=== PATIENT | male | born 1995 | race African-American/Black ===

== ENCOUNTER 2023-06-14 09:53 | Inpatient (IN) | payer OTHER ==
[2023-06-14 10:38] VITALS: BMI 22.6
[2023-06-14] MEDS ORDERED: BENZOCAINE/MENTHOL (CHLORASEPTIC ) LOZENGE MM PRN (11:43)
[2023-06-14] MEDS ORDERED: guaiFENesin 600 MG TABLET.ER (FP) PO PRN (11:43)
[2023-06-14] MEDS ORDERED: POLYETHYLENE GLYCOL (HEALTHYLAX) 3350 17 GM PACKET PO PRN (11:43)
[2023-06-14] MEDS ORDERED: ACETAMINOPHEN 325 MG TABLET (FP) PO PRN (11:43)
[2023-06-14] MEDS ORDERED: NALOXONE HCL (KLOXXADO) 8 MG SPRAY NS PRN (11:43)
[2023-06-14] MEDS ORDERED: LOPERAMIDE HCL 2 MG CAPSULE PO PRN (11:43)
[2023-06-14] MEDS ORDERED: COLLOIDAL OATMEAL 1 BAR EACH TP PRN (11:43)
[2023-06-14] MEDS ORDERED: IBUPROFEN 400 MG TABLET (FP) PO PRN (11:43)
[2023-06-14] MEDS ORDERED: BENZONATATE 200 MG CAPSULE PO PRN (11:43)
[2023-06-14] MEDS ORDERED: NALOXONE HCL 0.4 MG/ML VIAL IM PRN (11:43)
[2023-06-14] MEDS ORDERED: MAGNESIUM HYDROX 2400MG/30ML ORAL SUSPENSION 30 ML CUP PO PRN (11:43)
[2023-06-14] MEDS ORDERED: IBUPROFEN 600 MG TABLET (FP) PO PRN (11:43)
[2023-06-14] MEDS: NICOTINE 14 MG/24 HOURS TOPICAL PATCH TD SCH (13:50)
[2023-06-14] MEDS: PRENATAL VITAMINS W/ FOLIC ACID TABLET (FP) PO SCH (13:50)
[2023-06-14] MEDS ORDERED: PRENATAL VITAMINS W/ FOLIC ACID TABLET (FP) PO ONE (14:19)
[2023-06-14] MEDS ORDERED: NICOTINE 14 MG/24 HOURS TOPICAL PATCH TD ONE (14:19)
[2023-06-14] MEDS ORDERED: TUBERCULIN PPD 5 TU/0.1ML SYRINGE (IN PATIENT USE ONLY) ID ONE (15:45)
[2023-06-14] MEDS: MELATONIN 5 MG TABLETS PO SCH (21:59)
[2023-06-14] MEDS: THIAMINE HCL 100 MG TABLET (FP) PO SCH (21:59)
[2023-06-15] MEDS: NICOTINE 14 MG/24 HOURS TOPICAL PATCH TD SCH (09:11)
[2023-06-15] MEDS: hydrOXYzine PAMOATE 25 MG CAPSULE (FP) PO PRN (09:12)
[2023-06-15] MEDS: PRENATAL VITAMINS W/ FOLIC ACID TABLET (FP) PO SCH (09:12)
[2023-06-15 11:09] LABS: HEMATOCRIT 42.2 % (35.4-49); MCH 31.3 pg (25.7-33.7); MCHC 33.2 g/dl (32.0-35.9); MEAN CELL VOLUME 94.3 fl (80-96); MEAN PLT VOLUME 9.1 fl (7.5-11.1); PLATELET COUNT 347 10^3/uL (134-434); RBC 4.47 M/mm3 (4.00-5.60); RDW 13.2 % (11.9-15.9); WHITE BLOOD COUNT 5.8 K/mm3 (4.0-10.0)
[2023-06-15 11:33] LABS: SYPHILIS W/ RPR CONF REACTIVE (NONREACTIVE)
[2023-06-15 12:19] LABS: POTASSIUM 3.9 mmol/L (3.5-5.1)
[2023-06-15 12:21] LABS: BLOOD UREA NITROGEN 13.6 mg/dL (7-18); CALCIUM 8.6 mg/dL (8.5-10.1)
[2023-06-15 12:22] LABS: ALBUMIN 3.6 g/dl (3.4-5.0)
[2023-06-15 12:25] LABS: CREATININE 1.1 mg/dL (0.55-1.3)
[2023-06-15 12:26] LABS: BILIRUBIN,TOTAL 0.3 mg/dL (0.2-1)
[2023-06-15 12:27] LABS: TOT PROT 6.5 g/dl (6.4-8.2)
[2023-06-15] MEDS: THIAMINE HCL 100 MG TABLET (FP) PO SCH (21:02)
[2023-06-15] MEDS: MELATONIN 5 MG TABLETS PO SCH (21:02)
[2023-06-15] MEDS: MAG HYDROX/AL HYDROX/SIMETH 30 ML UNIT-DOSE CUP PO PRN (23:18)
[2023-06-16] MEDS: PRENATAL VITAMINS W/ FOLIC ACID TABLET (FP) PO SCH (10:13)
[2023-06-16] MEDS: NICOTINE 14 MG/24 HOURS TOPICAL PATCH TD SCH (10:13)
[2023-06-16] MEDS: NALTREXONE HCL 50 MG TABLET PO SCH (14:00)
[2023-06-16 16:24] LABS: HIV INTERPRETATION NEGATIVE (NEGATIVE)
[2023-06-16] MEDS: hydrOXYzine PAMOATE 25 MG CAPSULE (FP) PO PRN (18:19)
[2023-06-16] MEDS: THIAMINE HCL 100 MG TABLET (FP) PO SCH (21:19)
[2023-06-16] MEDS: MELATONIN 5 MG TABLETS PO SCH (21:19)
[2023-06-17] MEDS: NICOTINE 14 MG/24 HOURS TOPICAL PATCH TD SCH (10:06)
[2023-06-17] MEDS: NALTREXONE HCL 50 MG TABLET PO SCH (10:06)
[2023-06-17] MEDS: PRENATAL VITAMINS W/ FOLIC ACID TABLET (FP) PO SCH (10:07)
[2023-06-17] MEDS: THIAMINE HCL 100 MG TABLET (FP) PO SCH (21:31)
[2023-06-17] MEDS: MELATONIN 5 MG TABLETS PO SCH (21:31)
[2023-06-17] MEDS: MAG HYDROX/AL HYDROX/SIMETH 30 ML UNIT-DOSE CUP PO PRN (23:34)
[2023-06-18] MEDS: NICOTINE 14 MG/24 HOURS TOPICAL PATCH TD SCH (10:00)
[2023-06-18] MEDS: PRENATAL VITAMINS W/ FOLIC ACID TABLET (FP) PO SCH (10:02)
[2023-06-18] MEDS: NALTREXONE HCL 50 MG TABLET PO SCH (10:02)
[2023-06-18] MEDS: MAG HYDROX/AL HYDROX/SIMETH 30 ML UNIT-DOSE CUP PO PRN (15:30)
[2023-06-18 16:29] LABS: PH,URINE 7.5 (5.0-8.0); URINE APPEARANCE CLEAR; URINE BILIRUBIN NEGATIVE (NEGATIVE); URINE COLOR YELLOW; URINE GLUCOSE (UA) NEGATIVE (NEGATIVE); URINE KETONE NEGATIVE (NEGATIVE); URINE LEUK ESTERASE NEGATIVE (NEGATIVE); URINE NITRITE NEGATIVE (NEGATIVE); URINE PROTEIN NEGATIVE (NEGATIVE); URINE UROBILINOGEN 0.2 mg/dL (0.2-1.0)
[2023-06-18] MEDS: THIAMINE HCL 100 MG TABLET (FP) PO SCH (21:29)
[2023-06-18] MEDS: MELATONIN 5 MG TABLETS PO SCH (21:29)
[2023-06-19] MEDS: NICOTINE 14 MG/24 HOURS TOPICAL PATCH TD SCH (10:09)
[2023-06-19] MEDS: PRENATAL VITAMINS W/ FOLIC ACID TABLET (FP) PO SCH (10:10)
[2023-06-19] MEDS: NALTREXONE HCL 50 MG TABLET PO SCH (10:10)
[2023-06-19] MEDS: hydrOXYzine PAMOATE 25 MG CAPSULE (FP) PO PRN (12:35)
[2023-06-19] MEDS: MELATONIN 5 MG TABLETS PO SCH (21:33)
[2023-06-19] MEDS: THIAMINE HCL 100 MG TABLET (FP) PO SCH (21:33)
[2023-06-20 06:49] VITALS: BP 131/70; PULSE 96; RESP 20; TEMP 97.3
[2023-06-20] MEDS: NICOTINE 14 MG/24 HOURS TOPICAL PATCH TD SCH (09:10)
[2023-06-20] MEDS: PRENATAL VITAMINS W/ FOLIC ACID TABLET (FP) PO SCH (09:10)
[2023-06-20] MEDS ORDERED: NALTREXONE MICROSPHERES (VIVITROL) 380 MG DISP.SYRIN IM ONE (10:00)
[2023-06-21] MEDS ORDERED: NALTREXONE MICROSPHERES (VIVITROL) 380 MG DISP.SYRIN IM ONE (10:00)
== END 2023-06-20 14:16 | disposition home or self-care (01) | DRG 772 ==
LOC: YASAS 09:53 → Y3E 13:25
PROVIDERS: ADMIT Allergy & Immunology; ATTEND Psychiatry & Neurology Pain Medicine
PROC: HZ42ZZZ Group Counseling for Substance Abuse Treatment, Cognitive-Behavioral (ICD-10-PCS; principal; 2023-06-14)
DX: F15.20 Other stimulant dependence, uncomplicated (principal); F12.20 Cannabis dependence, uncomplicated; F19.280 Other psychoactive substance dependence with psychoactive substance-induced anxiety disorder; F19.282 Other psychoactive substance dependence with psychoactive substance-induced sleep disorder; F41.9 Anxiety disorder, unspecified; F32.A Depression, unspecified; F39 Unspecified mood [affective] disorder; F90.9 Attention-deficit hyperactivity disorder, unspecified type; Z86.19 Personal history of other infectious and parasitic diseases; Z28.310 Unvaccinated for COVID-19; Z28.9 Immunization not carried out for unspecified reason
CPT/HCPCS: 36415; 80053; 80307; 81003; 85027; 86593; 86780; 86803; 87389; 87522; 87635; 87811; J2315

== ENCOUNTER 2023-11-28 20:26 | Inpatient (IN) | payer OTHER ==
[2023-11-28 21:42] VITALS: BMI 22.0
[2023-11-28] MEDS ORDERED: BENZONATATE 200 MG CAPSULE PO PRN (22:54)
[2023-11-28] MEDS ORDERED: MAG HYDROX/AL HYDROX/SIMETH 30 ML UNIT-DOSE CUP PO PRN (22:54)
[2023-11-28] MEDS ORDERED: MAGNESIUM HYDROX 2400MG/30ML ORAL SUSPENSION 30 ML CUP PO PRN (22:54)
[2023-11-28] MEDS ORDERED: POLYETHYLENE GLYCOL (HEALTHYLAX) 3350 17 GM PACKET PO PRN (22:54)
[2023-11-28] MEDS ORDERED: IBUPROFEN 600 MG TABLET (FP) PO PRN (22:54)
[2023-11-28] MEDS ORDERED: guaiFENesin 600 MG TABLET.ER (FP) PO PRN (22:54)
[2023-11-28] MEDS ORDERED: P-EPHED 60MG/TRIPROLIDI 2.5MG TABLET PO PRN (22:54)
[2023-11-28] MEDS ORDERED: BENZOCAINE/MENTHOL (CHLORASEPTIC ) LOZENGE MM PRN (22:54)
[2023-11-28] MEDS ORDERED: NALOXONE HCL (KLOXXADO) 8 MG SPRAY NS PRN (22:54)
[2023-11-28] MEDS ORDERED: NALOXONE HCL 0.4 MG/ML VIAL IM PRN (22:54)
[2023-11-28] MEDS ORDERED: IBUPROFEN 400 MG TABLET (FP) PO PRN (22:54)
[2023-11-28] MEDS ORDERED: LOPERAMIDE HCL 2 MG CAPSULE PO PRN (22:54)
[2023-11-28] MEDS ORDERED: METHOCARBAMOL 750 MG TABLET PO PRN (22:56)
[2023-11-29] MEDS: MELATONIN 5 MG TABLETS PO SCH (00:21)
[2023-11-29] MEDS: PRENATAL VITAMINS W/ FOLIC ACID TABLET (FP) PO SCH (10:35)
[2023-11-29] MEDS: ASPIRIN COATED 81 MG TABLET.EC PO SCH (10:35)
[2023-11-29 12:26] LABS: POTASSIUM 4.9 mmol/L (3.5-5.1)
[2023-11-29 12:52] LABS: ALBUMIN 3.6 g/dl (3.4-5.0); BLOOD UREA NITROGEN 12.5 mg/dL (7-18)
[2023-11-29 12:53] LABS: CALCIUM 8.8 mg/dL (8.5-10.1)
[2023-11-29 12:55] LABS: CREATININE 1.2 mg/dL (0.55-1.3)
[2023-11-29 12:57] LABS: BILIRUBIN,TOTAL 0.6 mg/dL (0.2-1); TOT PROT 7.1 g/dl (6.4-8.2)
[2023-11-29] MEDS ORDERED: DICYCLOMINE HCL 10 MG CAPSULE PO PRN (14:36)
[2023-11-29] MEDS ORDERED: ONDANSETRON *ODT* 4 MG TABLET SL PRN (14:36)
[2023-11-29] MEDS ORDERED: BISMUTH SUBSALICYLATE 262 MG/15 ML BTL PO PRN (14:36)
[2023-11-29] MEDS: THIAMINE 100 MG TABLET PO SCH (21:20)
[2023-11-30] MEDS ORDERED: BUPRENORPHINE HCL 150 MCG, BUPRENORPHINE HCL 75 MCG BC PRN (08:46)
[2023-11-30] MEDS: BUPRENORPHINE HCL 150 MCG, BUPRENORPHINE HCL 75 MCG BC ONE (09:46)
[2023-11-30] MEDS: diazePAM 5 MG TABLET PO PRN (09:46)
[2023-11-30] MEDS: cloNIDine HCL 0.1 MG TABLET PO ONE (09:47)
[2023-11-30 11:25] LABS: URINE APPEARANCE CLEAR; URINE BILIRUBIN NEGATIVE (NEGATIVE); URINE COLOR YELLOW; URINE GLUCOSE (UA) NEGATIVE (NEGATIVE); URINE KETONE NEGATIVE (NEGATIVE); URINE LEUK ESTERASE NEGATIVE (NEGATIVE); URINE NITRITE NEGATIVE (NEGATIVE); URINE PROTEIN NEGATIVE (NEGATIVE); URINE UROBILINOGEN 0.2 mg/dL (0.2-1.0)
[2023-11-30] MEDS ORDERED: cloNIDine HCL 0.1 MG TABLET PO PRN (12:46)
[2023-11-30] MEDS: METHOCARBAMOL 500 MG TABLET PO PRN (21:22)
[2023-12-01] MEDS ORDERED: BUPRENORPHINE HCL 150 MCG, BUPRENORPHINE HCL 75 MCG BC PRN
[2023-12-01] MEDS: hydrOXYzine PAMOATE 25 MG CAPSULE (FP) PO PRN (01:09)
[2023-12-01] MEDS: BUPRENORPHINE HCL 150 MCG, BUPRENORPHINE HCL 75 MCG BC SCH (07:00)
[2023-12-01 17:57] VITALS: RESP 18
[2023-12-02] MEDS: BUPRENORPHINE HCL 450 MCG FILM BC SCH (06:50)
[2023-12-02] MEDS: QUEtiapine FUMARATE 50 MG TABLET PO SCH (21:44)
[2023-12-03 07:18] VITALS: TEMP 97.5
[2023-12-03] MEDS: ACETAMINOPHEN 325 MG TABLET (FP) PO PRN (09:36)
[2023-12-04 07:22] VITALS: BP 129/81; PULSE 64
== END 2023-12-04 14:00 | disposition home or self-care (01) | DRG 772 ==
LOC: YASAS 20:26 → Y3E 23:20
PROVIDERS: ADMIT Allergy & Immunology; ATTEND Psychiatry & Neurology Pain Medicine
PROC: HZ42ZZZ Group Counseling for Substance Abuse Treatment, Cognitive-Behavioral (ICD-10-PCS; principal; 2023-11-28)
DX: F15.20 Other stimulant dependence, uncomplicated (principal); F12.20 Cannabis dependence, uncomplicated; F19.24 Other psychoactive substance dependence with psychoactive substance-induced mood disorder; F32.A Depression, unspecified; F90.9 Attention-deficit hyperactivity disorder, unspecified type; Z56.0 Unemployment, unspecified; Z59.01 Sheltered homelessness
CPT/HCPCS: 36415; 80053; 81003; 93005; 93010